=== PATIENT | male | born 1980 | race Two or more races ===

== ENCOUNTER 2024-12-24 21:14 | Emergency (ER) | payer SELFPAY ==
[~2024-12-24] VITALS: Ht 170.2 cm; Wt 102.0 kg
[2024-12-24 22:17] VITALS: BP 148/92; PULSE 76; RESP 18; TEMP 98.3; O2SAT 94
[2024-12-24] MEDS ORDERED: TETANUS-DIPTH-ACEL PERTUSSIS 0.5ML SYR Tdap IM ONE (22:45)
[2024-12-24] MEDS ORDERED: IBUP-1456 PO (22:46)
[2024-12-24] MEDS ORDERED: CLIN1CAP70 PO (22:46)
--- NOTE | 2024-12-24 22:47 | ED.PDOC ---
HPI Comments 43-YEAR-OLD MALE PRESENTS TO ER WITH COMPLAINTS OF LACERATION TO RIGHT 4TH FINGER X1 DAY. PATIENT REPORTS THAT HE SUSTAINED A LACERATION TO RIGHT 4TH FINGER AT 7:30 P.M. PRIOR TO ARRIVAL TO ER S/P A GLASS TABLE TOP FALLIN G/SHATTERING AND MAKING IMPACT WITH HIS RIGHT 4TH FINGER. REPORTS 1/10 PAIN LOCALIZED TO RIGHT 4TH FINGER WITHOUT RADIATION. DENIES USE OF MEDICATIONS FOR CURRENT SYMPTOMS AND STATES HE IS UNSURE WHEN HIS LAST TETANUS SHOT WAS. DENIES NUMBNESS/TINGLING, FOREIGN BODY SENSATION OR ANY FURTHER SYMPTOMS/COMPLAINTS Chief Complaint: Laceration Time Seen by MD: 21:48 Primary Care Provider: UNKNOWN Reviewed Notes: Nurses Notes, Medications, Allergies Allergies: Coded Allergies: NO KNOWN ALLERGIES (Unverified , 12/24/24) Home Meds Active Scripts Ibuprofen (Ibuprofen) 800 Mg Tab, 1 TAB PO TID PRN, #30 TAB 0 Refills Prov:DEVAN BERNABE 12/24/24 Clindamycin Hcl (Clindamycin Hcl) 300 Mg Cap, 1 CAP PO TID for 7 Days, #21 CAP 0 Refills Prov:DEVAN BERNABE 12/24/24 Information Source: Patient Mode of Arrival: Ambulatory Complexity: Simple Laceration Length (cm): 5 Skin Type: Irregular Past Medical History PAST MEDICAL HISTORY: Denies Surgical History: Denies all surgeries Family History Family History: Unknown Social History Smoker: Non-Smoker Alcohol: Denies ETOH Use Drugs: Denies Drug Use Lives In: Home Constitutional: denies: chills, diaphoresis, fatigue, fever, malaise, sweats, weakness, others EENTM: denies: blurred vision, double vision, ear bleeding, ear discharge, ear drainage, ear pain, ear ringing, eye pain, eye redness, hearing loss, mouth pain, mouth swelling, nasal discharge, nose bleeding, nose congestion, nose pain, photophobia, tearing, throat pain, throat swelling, voice changes, others Respiratory: denies: cough, hemoptysis, orthopnea, SOB at rest, shortness of breath, SOB with excertion, stridor, wheezing, others Cardiovascular: denies: chest pain, dizzy spells, diaphoresis, Dyspnea on exertion, edema, irregular heart beat, left arm pain, lightheadedness, palpitations, PND, syncope, others Gastrointestinal: denies: abdomen distended, abdominal pain, blood streaked bowels, constipated, diarrhea, dysphagia, difficulty swallowing, hematemesis, m pietro, nausea, poor appetite, poor fluid intake, rectal bleeding, rectal pain, vomiting, others Genitourinary: denies: burning, dysuria, flank pain, frequency, hematuria, incontinence, penile discharge, penile sore, pain, testicle pain, testicle swelling, urgency, others Neurological: denies: dizziness, fainting, headache, left sided numbness, left sided weakness, numbness, paresthesia, pre-existing deficit, right sided numbness, right sided weakness, seizure, speech problems, tingling, tremors, weakness, others Musculoskeletal: reports: others ( STATED IN HPI) Integumetry: reports: others ( STATED IN HPI) Allergic/Immunocompromised: denies: Difficulty Healing, Frequent Infections, Hives, Itching, others Hematologic/Lymphatic: denies: anemia, blood clots, easy bleeding, easy bruising, swollen glands, others Endocrine: denies: excessive hunger, excessive sweating, excessive thirst, excessive urination, flushing, intolerance to cold, intolerance to heat, unexplained weight gain, unexplained weight loss, others Psychiatric: denies: anxiety, bipolar disorder, depression, hopeless, panic disorder, schizophrenia, sleepless, suicidal, others Physical Exam General Appearance: No Apparent Distress HEENT: PERRL/EOMI Neck: Full Range of Motion, Non-Tender, Normal Respiratory: Chest Non-Tender, Lungs Clear, No Accessory Muscle Use, No Respiratory Distress, Normal Breath Sounds Cardiovascular: No Murmur, No Gallop, Regular Rate/Rhythm Breast Exam: Deferred Gastrointestinal: NOT DONE Genitalia: Deferred Pelvic: Deferred Rectal: Deferred Extremities: Normal capillary refill, Normal range of motion Musculoskeletal : Extremity Location: Finger 4 (5 CM LACERATION NOTED TO RIGHT 4TH FINGER. SLIGHT TTP/SWELLING/ERYTHEMA LOCALIZED TO WOUND EDGES. NO NAILBED INJURY/FURTHER SKIN CHANGES NOTED. PATIENT ABLE TO FULLY MOVE ALL FINGERS RIGHT HAND. PULSES INTACT) Neurologic: Alert, No Motor Deficits, Normal Affect, Normal Mood, No Sensory Deficits Cerebellar Function: Normal Reflexes: Normal Skin: Dry, Warm Peripheral Pulses: 2+ Radial (R), 2+ Radial (L), 2+ Brachial (R), 2+ Brachial (L) Lymphatic: No Adenopathy Was a procedure done? Was a procedure done?: Yes Sedation Sedation?: No Laceration Repair : Location RIGHT 4TH FINGER Length 5 CM Anesthetic: Lidocaine (1%), Without epi Laceration Repair Prep: Saline (AND PEROXIDE), by Irrigation (HEAVILY IRRIGATED WITHOUT ANY SIGNS OF FOREIGN BODY) Laceration Repair Wound Comple: epidermis/dermis repair Laceration Repair: Number of sutures (5 PLACED -PATIENT TOLERATED WELL WITHOUT ANY COMPLICATION), Size (4-0), Nylon, Simple, Non-adherent gauze Informed consent obtained: Yes Risks, benefits, and alternati: Yes Differential diagnosis Generic Laceration: Fracture, Retained Foriegn Body, Neurovascular Injury X-Ray, Labs, Meds, VS Vital Signs Date Time Temp Pulse Resp B/P (MAP) Pulse Ox O2 Delivery O2 Flow Rate FiO2 12/24/24 22:17 76 18 94 0 12/24/24 22:17 98.3 76 16 148/92 (110) 94 98.3 12/24/24 21:35 99.1 69 18 149/94 (112) 96 99.1 Current Medications Medications (Trade) Dose Ordered Sig/Bean Route Start Time Stop Time Status Last Admin Ceftriaxone Sodium (Rocephin) 1,000 mg ONCE ONCE IM 12/24/24 23:00 12/24/24 23:01 DC 12/24/24 23:26 Diphtheria/ Tetanus/Acell Pertussis (Boostrix T-Dap) 0.5 ml ONCE ONCE IM 12/24/24 23:30 12/24/24 23:31 DC 12/24/24 23:31 PATIENT: NIECY ENRIQUEOACCT: [id number]: [id number] : 1980 LOC: ER ROOM / BED: / AGE / SEX: 43 / M ADM STATUS: REG ER SERVICE 37 ORDERING PHYSICIAN: DEVAN BERNABE PROCEDURE(s): RFIN4 - R 4TH FINGER XRAY REASON: RIGHT 4TH FINGER PAIN ORDER NUMBER(s): [id number], ACCESSION NUMBER(s): [id number] CLINICAL INDICATION: RIGHT 4TH FINGER PAIN TECHNIQUE: XY R 4TH FINGER XRAY Comparison: None FINDINGS/IMPRESSION: : There is no evidence of acute fracture or dislocation. Soft tissues are unremarkable. ATED BY: WERNER FERRERA MD DICTATED DATE/TIME: 12/24/242309 SIGNED BY: WERNER FERRERA MD SIGNED DATE/TIME: 12/24/242309 CC: RIGHT 4TH FINGER X-RAY REVIEWED PATIENT NEUROVASCULARLY INTACT ROCEPHIN 1 G IM ORDERED TDAP 0.5 ML IM ORDERED WOUND CARE/CLEANING DISCUSSED AND ADVISED ADVISED TO FOLLOW UP IN TWO DAYS FOR WOUND CHECK ADVISED TO FOLLOW UP IN 10-14 DAYS FOR REMOVAL OF SUTURES ADVISED TO FOLLOW UP WITH PCP IN 1-2 DAYS PATIENT VERBALIZED UNDERSTANDING AND AGREEABLE WITH CURRENT PLAN OF CARE ADVISED TO RETURN TO ER IMMEDIATELY IF SYMPTOMS WORSEN Images Reviewed?: Images reviewed and evaluated by me Time of 1ST Reevaluation: 22:42 Reevaluation 1ST: N/A Patient Education/Counseling: Diagnosis, Treatment, Prognosis, Need For Follow Up Family Education/Counseling: No Family Present Departure 1 Departure Time of Disposition: 23:52 Impression: Primary Impression: Laceration of finger of right hand Qualified Codes: S61.214A - Laceration without foreign body of right ring finger without damage to nail, initial encounter Disposition: HOME / SELF CARE / HOMELESS Condition: Stable e-Prescriptions Ibuprofen (Ibuprofen) 800 Mg Tab 1 TAB PO TID PRN, #30 TAB 0 Refills Prov: DEVAN BERNABE 12/24/24 Clindamycin Hcl (Clindamycin Hcl) 300 Mg Cap 1 CAP PO TID for 7 Days, #21 CAP 0 Refills Prov: DEVAN BERNABE 12/24/24 Discharged With: Friend Critical Care Note Critical Care Time?: No Stability Stability form required: No Heart Score Heart Score: Heart Score Response (Comments) Value History N/A 0 EKG N/A 0 Age N/A 0 Risk Factors N/A 0 Troponin N/A 0 Total 0 DEVAN BERNABE Dec 24, 2024 22:47
--- NOTE | 2024-12-24 23:13 | DVH ---
CLINICAL INDICATION: RIGHT 4TH FINGER PAIN TECHNIQUE: XY R 4TH FINGER XRAY Comparison: None FINDINGS/IMPRESSION: : There is no evidence of acute fracture or dislocation. Soft tissues are unremarkable.
[2024-12-24] MEDS: cefTRIAXone SOD 1,000 MG VL IM ONE (23:26)
[2024-12-24] MEDS: TETANUS-DIPTH-ACEL PERTUSSIS 0.5ML SYR Tdap IM ONE (23:31)
== END 2024-12-24 23:41 | disposition home or self-care (01) ==
LOC: ER 21:14
DX: S61.214A Laceration without foreign body of right ring finger without damage to nail, initial encounter (principal); Z79.899 Other long term (current) drug therapy; W25.XXXA Contact with sharp glass, initial encounter; Y93.89 Activity, other specified; Y92.89 Other specified places as the place of occurrence of the external cause; Y99.8 Other external cause status
CPT/HCPCS: 12002; 73140; 90471; 90715; 96372; 99284; J0696; J2003